=== PATIENT | female | born 1970 | race Caucasian/White ===

== ENCOUNTER 2017-05-03 20:48 | Emergency (ER) | payer OTHER ==
[2017-05-03] MEDS ORDERED: RANITIDINE 50 MG/2 ML VIAL IV ONE (21:07)
[2017-05-03] MEDS ORDERED: SODIUM CL 0.9% 20 ML VIAL ONE (21:07)
[2017-05-03] MEDS ORDERED: RANITIDINE 50 MG/2 ML VIAL ONE (21:07)
[2017-05-03] MEDS ORDERED: methylPREDNISolone SOD SUCC 125 MG/2 ML VIAL IVP ONE (21:07)
[2017-05-03] MEDS ORDERED: methylPREDNISolone SOD SUCC 125 MG/2 ML VIAL ONE (21:07)
--- NOTE | 2017-05-03 21:22 | EDPHY ---
H & P Time Seen by Provider: 05/03/17 21:20 HPI/ROS: Chief complaint. Allergic reaction HPI. 46-year-old female was bitten on the left ankle by an unknown insect at about 815 this evening when she was taking her dog further walk. She had pain and swelling on the walk to the left ankle. However shortly after getting home she knows hands and feet were swelling and itching. She developed generalized hives. Some swelling to her face and tongue. She took Benadryl with inadequate relief. She has had previous allergic reactions and does carry an EpiPen. She did not use the EpiPen tonight. ROS Constitutional. no fever/chills, no weakness Eyes. no problems with vision ENT. Face and tongue swelling Cardiovascular. no chest pain Respiratory. no shortness of breath, no cough Abdominal. no abdominal pain, no nausea/vomiting, no diarrhea . no problems urinating MS. Swelling to hands and feet Skin. Hives Lymph. no swollen glands Neuro. no headache, no dizziness, no difficulty walking or with speech Past Medical/Surgical History: IUD, previous allergic reaction Social History: , nonsmoker, no alcohol Smoking Status: Never smoked Physical Exam: General Appearance: Alert well-developed female moderate distress vital signs significant for heart rate of 129 Eyes: Pupils equal and round no pallor or injection. ENT, periorbital swelling. Mild swelling to tongue. No stridor. Respiratory: There are no retractions, lungs are clear to auscultation. Cardiovascular: Regular rate and rhythm. Gastrointestinal: Abdomen is soft and nontender, no masses, bowel sounds normal. Neurological: Awake and alert, sensory and motor exams grossly normal. Skin: Generalized hives Musculoskeletal: Neck is supple nontender. Extremities swelling of both hands and both feet Psychiatric: Patient is oriented X 3, there is no agitation. Constitutional: Initial Vital Signs Temperature (C) 36.9 C 05/03/17 20:55 Heart Rate 129 H 05/03/17 20:55 Respiratory Rate 18 05/03/17 20:55 Blood Pressure 125/92 H 05/03/17 20:55 O2 Sat (%) 95 05/03/17 20:55 O2 Delivery Mode Room Air Allergies/Adverse Reactions: banana Allergy (Verified 05/03/17 20:55) Home Medications: Medication Instructions Recorded EPINEPHrine [Epipen 0.3 MG] 0.3 mg IM ONCE #2 syr 05/03/17 Tecfidera 05/03/17 VITAMIN D 05/03/17 predniSONE 40 mg PO DAILY #6 tab 05/03/17 Medical Decision Making Procedures: IV normal saline, monitor. IV Benadryl, Pepcid, Solu-Medrol. Intramuscular epinephrine ED Course/Re-evaluation: On re-evaluation patient's symptoms have resolved. She is conversational and speaking in full sentences. No stridor. The hives and erythema have resolved Differential Diagnosis: I considered allergic reaction, anaphylaxis, airway compromise - Data Points Medications Given: Discontinued Medications Diphenhydramine HCl (Benadryl Injection) 50 mg IVP EDNOW ONE Stop: 05/03/17 21:08 Last Admin: 05/03/17 21:13 Dose: 50 mg Epinephrine HCl (Epinephrine) 0.3 mg IM EDNOW ONE Stop: 05/03/17 21:31 Last Admin: 05/03/17 21:28 Dose: 0.3 mg Methylprednisolone Sodium Succinate (Solu-Medrol) 125 mg IVP EDNOW ONE Stop: 05/03/17 21:08 Last Admin: 05/03/17 21:13 Dose: 125 mg Ranitidine HCl (Zantac) 50 mg IV EDNOW ONE Stop: 05/03/17 21:08 Last Admin: 05/03/17 21:13 Dose: 50 mg Departure - Departure Disposition: Home, Routine, Self-Care Clinical Impression: Allergic reaction Qualifiers: Encounter type: initial encounter Qualified Code(s): T78.40XA - Allergy, unspecified, initial encounter Condition: Good Instructions: Urticaria (ED) Additional Instructions: Prednisone using 2 pills at the same time each day for the next 3 days. May use Benadryl in addition. Return for worsening symptoms Referrals: Alia Sanchez MD [Primary Care Provider] - As per Instructions Prescriptions: EPINEPHrine [Epipen 0.3 MG] 0.3 mg IM ONCE #2 syr predniSONE 40 mg PO DAILY #6 tab
[2017-05-03 23:06] VITALS: BP 113/75; PULSE 83; RESP 18; TEMP 98.2; O2SAT 96
== END 2017-05-03 23:05 | disposition home or self-care (01) ==
DX: T78.40XA Allergy, unspecified, initial encounter (principal)
CPT/HCPCS: 96374; J0171; J1200; J2780

== ENCOUNTER → 2017-05-03 | Outpatient (CLI) | payer OTHER | LOC: FIMAGING 15:56 | PROVIDERS: ATTEND Nurse Practitioner Women's Health | DX: Z12.31 Encounter for screening mammogram for malignant neoplasm of breast (principal) | CPT/HCPCS: G0202 ==

== ENCOUNTER 2017-10-03 14:37 | Emergency (ER) | payer OTHER ==
[2017-10-03 15:01] VITALS: TEMP 98.4
--- NOTE | 2017-10-03 15:27 | EDPHY ---
H & P Stated Complaint: fell off sled,hit face on snow;no LOC;abrasion to chin, chipped tooth HPI/ROS: Chief complaint: Face injury History of present illness: This is a 46-year-old female who presents to the emergency department for a facial injury. Patient was sleading when she lost control, fell off and struck her jaw against the ground. She sustained an abrasion to the jaw. She has significant pain throughout the jaw. It makes it difficult to open or close the mouth. She states the rest the face feels well. She denies other trauma. There was no loss of consciousness. No report of pain in or trauma to the neck, back, chest, abdomen, pelvis or extremities. No report of neurologic symptoms including no headache, no paresthesias, no weakness or paralysis, no bowel or bladder dysfunction. Review of systems: A 10 point review of systems was obtained and other than described above was negative - Personal History LMP (Females 10-55): Post Menopausal Current Tetanus Diphtheria and Acellular Pertussis (TDAP): Yes Tetanus Vaccine Date: 2007 - Medical/Surgical History Hx Asthma: No Hx Chronic Respiratory Disease: No Hx Diabetes: No Hx Cardiac Disease: No Hx Renal Disease: No Hx Cirrhosis: No Hx Alcoholism: No Hx HIV/AIDS: No Hx Splenectomy or Spleen Trauma: No Other PMH: MS - Social History Smoking Status: Never smoked - Physical Exam Exam: General Appearance: Alert, nontoxic Eyes: PERRLA Mouth/ENT: No bleeding at the gum lines. No hemotympanum, no Bowie sign, no raccoon eyes Respiratory: Lungs clear to auscultation bilaterally Cardiac: Regular rate and rhythm. Gastrointestinal: Bowel sounds normal. Abdomen is soft, nondistended, nontender. Neurological: Alert and oriented x4. Cranial nerves 2-12 grossly intact. Strength and sensation intact and symmetrical. Ambulating without difficulty, good balance. Skin: Abrasion to the chin, no repairable lesions. Musculoskeletal: Diffuse tenderness to the chin although no crepitus or bony deformity is noted. She has difficulty opening closing the mouth although she still can. The rest the face is nontender. The head is nontender without crepitus or bony deformity. The spine is nontender without crepitus, bony deformity or step-off. Patient moving all extremities without difficulty. Constitutional: Initial Vital Signs Temperature (C) 36.9 C 12/25/17 14:58 Heart Rate 78 10/03/17 14:58 Respiratory Rate 18 10/03/17 14:58 Blood Pressure 133/91 H 10/03/17 14:58 O2 Sat (%) 96 10/03/17 14:58 O2 Delivery Mode Room Air Allergies/Adverse Reactions: banana Allergy (Verified 10/03/17 14:57) Home Medications: Medication Instructions Recorded Tecfidera 05/03/17 VITAMIN D 05/03/17 Medical Decision Making - Diagnostics Imaging: Discussed imaging studies w/ call or contact centre operator Radiologist ED Course/Re-evaluation: Patient seen under the supervision of my secondary supervising physician Dr. Cara Tomlinson. Patient presents to the emergency department for evaluation of a jaw injury sustained while sledding. CT scan of the jaw is negative for bony fracture. This appears to be a contusion. By history and physical exam no evidence of trauma to other parts of the body including the head or neck. Patient will be discharged. Home care is discussed. Return precautions are given. Patient voiced understanding and agreement with plan. Differential Diagnosis: Included but not limited to contusion, sprain or strain, bony fracture, joint dislocation - Data Points Medications Given: Discontinued Medications Hydromorphone HCl (Dilaudid) 0.5 mg IVP EDNOW ONE Stop: 10/03/17 15:34 Last Admin: 10/03/17 15:40 Dose: 0.5 mg Departure - Departure Disposition: Home, Routine, Self-Care Clinical Impression: Contusion of jaw Qualifiers: Encounter type: initial encounter Qualified Code(s): S00.83XA - Contusion of other part of head, initial encounter Condition: Good Instructions: Contusion in Adults (ED) Additional Instructions: Follow-up with your primary care doctor for continued evaluation and care Use [id number]-mgu-[id number] ibuprofen 600 mg 3 times a day for the next 2-3 days for symptom control Follow-up with a dentist for recheck of your tooth If symptoms worsen or new symptoms develop return to the emergency room for recheck Referrals: Alia Sanchez MD [Primary Care Provider] - As per Instructions [facility] [Outside] - As per Instructions [facility] [Outside] - As per Instructions
[2017-10-03] MEDS ORDERED: HYDROmorphONE/DILAUDID 1 MG/ML INJ IVP ONE (15:33)
[2017-10-03 16:45] VITALS: BP 143/91; PULSE 81; RESP 16; O2SAT 97
== END 2017-10-03 16:44 | disposition home or self-care (01) ==
DX: S00.83XA Contusion of other part of head, initial encounter (principal); W18.09XA Striking against other object with subsequent fall, initial encounter
CPT/HCPCS: 96374; J1170

== ENCOUNTER → 2018-10-27 | Outpatient (CLI) | payer OTHER | LOC: FIMAGING 15:52 | PROVIDERS: ATTEND Physician Assistant | DX: R19.4 Change in bowel habit (principal); D25.1 Intramural leiomyoma of uterus ==

== ENCOUNTER 2018-12-21 05:42 | Observation (INO) | payer OTHER ==
--- NOTE | 2018-12-15 11:38 | GHP ---
[f rep st] PREOP HISTORY AND PHYSICAL DATE OF ADMISSION: 12/21/2018 PLANNED PROCEDURE: Total laparoscopic hysterectomy for symptomatic uterine fibroids. INDICATIONS: Patient is a 47 -year-old 3, para 2-0-1-2, who has a known fibroid uterus for the last several years. She has also had recurrent episodes of urinary incontinence and pelvic pressure, which did not improve with pelvic floor physical therapy. Patient was diagnosed with multiple sclerosis several years ago. She changed medications for her MS in 06/2018, and then noted rapid weight gain, constipation, and abdominal swelling after changing her medication. The neurologist stated they did not think it was related to the drugs, so they recommended imaging. Patient had a CAT scan in , which showed an enlarged fibroid uterus. She had a pelvic ultrasound which showed a normal uterus with an 8 x 8 x 6 cm anterior fibroid. An MRI showed a large fundal fibroid. No other suspicious findings were noted. I had a long discussion with patient about management options including expected management, hysterectomy, and uterine artery embolization. We discussed the remote possibility of a sarcoma, but no other suspicious findings were noted on the imaging. Decision was made to proceed with a total laparoscopic hysterectomy with bilateral salpingectomy. Risks and benefits have been extensively reviewed with the patient. The patient has been properly consented. Patient has significant anxiety about having surgery because her only other hospital experience was for the delivery of her first child which was very traumatic for her. MEDICAL HISTORY: Significant for multiple sclerosis, stress urinary incontinence . MEDICATIONS: She is on Ocrevus, which is an IV infusion every 6 months. Her most recent one was done several weeks ago. She is also on vitamins. SURGICAL HISTORY: Wrist surgery. ALLERGIES: No known drug allergies. SOCIAL HISTORY: Patient is . She denies tobacco or drug use. FAMILY MEDICAL HISTORY: Noncontributory. DIGITAL MEDIA ANALYST HISTORY: Menarche age 14. Periods every 28 days lasting 5 days. She is a 3, para 2-0-1-2. In 12/2005, she had a spontaneous forceps- assisted vaginal delivery of an 8 pound 7 ounce male , and she had extensive tearing, as well. That delivery was very traumatic for the patient due to multiple issues with nurses and IV starts, and a physician that was not a good fit for her. In 12/2006, she had a spontaneous and in 12/2007, she had a spontaneous vaginal delivery of a 9 pound 9 ounce male infant at home. Patient delivered at home due to her traumatic previous hospitalization. Patient denies any history of any abnormal Pap smears or sexually transmitted diseases. Last Pap smear was in 02/2017. Pap and HPV testing were negative. REVIEW OF SYSTEMS: A 10-point review of systems is negative with the exception of the above-mentioned pertinent positives. She does have an IUD in place. She does have stress urinary incontinence and constant pelvic pressure. Otherwise negative. PHYSICAL EXAMINATION: VITAL SIGNS: Patient's vital signs are stable. GENERAL APPEARANCE: Alert and oriented x3. PSYCH: Appropriate affect. MUSCULOSKELETAL: Grossly intact. NEURO: Grossly intact. HEART: Rate is regular, regular. LUNGS: Clear to auscultation bilaterally. ABDOMEN: Soft, nondistended, nontender. EXTREMITIES: Reveal no calf tenderness or edema. PELVIC: Reveals a mobile enlarged uterus with no adnexal masses. Pelvic ultrasound is described above. ASSESSMENT AND PLAN: A 47 -year-old, 3, para 2-0-1-2, with symptomatic uterine fibroids. She is requesting to proceed with a total laparoscopic hysterectomy with bilateral salpingectomy. She has anxiety due to the history of a previous traumatic event with IV starts and her last delivery. Risks and benefits have been extensively reviewed with the patient. Patient has been properly consented. /[id number]/MODL MTDD
[2018-12-21] MEDS ORDERED: PHENAZOPYRIDINE HCL 100 MG TAB PO ONE ×2 (06:01→06:45)
[2018-12-21] MEDS ORDERED: ceFAZolin 2 GM/DEXTROSE 100 ML IV ONE (06:01)
[2018-12-21] MEDS ORDERED: LR 1,000 ML IV ONE (06:03)
[2018-12-21] MEDS ORDERED: LIDOCAINE 1% 2 ML INJ ID PRN (06:03)
[2018-12-21] MEDS ORDERED: PHENAZOPYRIDINE HCL 200 MG TAB PO ONE (06:30)
[2018-12-21] MEDS ORDERED: BUPIVACAINE 0.5% 30 ML SDV ONE (07:00)
[2018-12-21] MEDS ORDERED: MIDAZOLAM 2 MG/2 ML VIAL IVP ONE (07:03)
--- NOTE | 2018-12-21 07:05 | PDANEPAE ---
ANE Past Medical History - Cardiovascular History Hx Hypertension: No Hx Arrhythmias: No Hx Chest Pain: No Hx Coronary Artery / Peripheral Vascular Disease: No Hx CHF / Valvular Disease: No Hx Palpitations: No - Pulmonary History Hx COPD: No Hx Asthma/Reactive Airway Disease: No Hx Recent Upper Respiratory Infection: No Hx Oxygen in Use at Home: No Hx Sleep Apnea: No Sleep Apnea Screening Result - Last Documented: Negative Pulmonary History Comment: EXERCISE INDUCED ASTHMA IN PAST. PNEUMONIA X2 IN PAST - Neurologic History Hx Cerebrovascular Accident: No Hx Seizures: No Hx Dementia: No - Endocrine History Hx Diabetes: No - Renal History Hx Renal Disorders: No - Liver History Hx Hepatic Disorders: No - Neurological & Psychiatric Hx Hx Neurological and Psychiatric Disorders: Yes Neurological / Psychiatric History Comment: MS - Cancer History Hx Cancer: No - Congenital Disorder History Hx Congenital Disorders: No - GI History Hx Gastrointestinal Disorders: No - Other Health History Other Health History: NEG - Chronic Pain History Chronic Pain: No - Surgical History Prior Surgeries: WRIST SURGERY ANE Review of Systems Review of Systems: - Exercise capacity METS (RN): 5 METS ANE Patient History - Allergies Allergies/Adverse Reactions: banana Allergy (Verified 12/11/18 14:30) THROAT SWELLING WASPS Allergy (Uncoded 12/11/18 14:30) GENERALIZED REDNESS & SWELLING - Home Medications Home Medications: Cholecalciferol Vit D3 [Vitamin D3 (*)] 2,000 units PO DAILY 05/03/17 [Last Taken 12/14/18] Ocrelizumab [Ocrevus] 300 mg IV Q180D 05/03/17 [Last Taken 12/15/18] Acetaminophen [Tylenol 325mg (*)] 325 mg PO Q6 PRN 12/04/18 [Last Taken 12/17/18 ] Ibuprofen [Motrin (*)] 600 mg PO DAILY PRN 12/04/18 [Last Taken 11/23/18] Ketoconazole [Ketoconazole] 1 ca TD Q3D 12/04/18 [Last Taken 12/20/18] Psyllium Husk (with Sugar) [Metamucil Packet] 1 each PO DAILY 12/04/18 [Last Taken 12/14/18] - NPO status NPO Status: no food or drink >8 hours NPO Since - Liquids (Date): 12/21/18 NPO Since - Liquids (Time): 05:15 NPO Since - Solids (Date): 12/20/18 NPO Since - Solids (Time): 21:00 - Anes Hx Anes Hx: no prior problems - Smoking Hx Smoking Status: Never smoked - Family Anes Hx Family Hx Anesthesia Complications: NEG ANE Labs/Vital Signs - Vital Signs Vital Signs: reviewed preoperatively; see RN documention for details Blood Pressure: 125/88 Heart Rate: 66 Respiratory Rate: 16 O2 Sat (%): 96 Height: 167.64 cm Weight: 61.235 kg ANE Physical Exam - Airway Neck exam: FROM Mallampati Score: Class 1 Mouth exam: normal dental/mouth exam - ASA Status ASA Status: II ANE Anesthesia Plan Anesthesia Plan: general endotracheal anesthesia
[2018-12-21] MEDS ORDERED: fentaNYL 100 MCG/2 ML INJ ONE (07:09)
[2018-12-21] MEDS ORDERED: PROPOFOL 200 MG/20 ML VIAL ONE (07:10)
[2018-12-21] MEDS ORDERED: ROCURONIUM 50 MG/5 ML VIAL ONE ×2 (07:11→08:47)
[2018-12-21] MEDS ORDERED: PETROLAT,WHT/MIN OIL/SOD CHL 3.5 GM OPHT.OINT ONE (07:12)
[2018-12-21] MEDS ORDERED: DEXAMETHASONE 4 MG/ML VIAL ONE (07:16)
[2018-12-21] MEDS ORDERED: LIDOCAINE 2% 100 MG/5 ML SYR ONE (07:17)
--- NOTE | 2018-12-21 07:17 | PDHPUP ---
History & Physical Update H&P update statement: This history and physical update is based on an assessment of the patient which was completed after admission or registration (within 24 hours), but prior to the surgery/procedure. H&P update: H&P reviewed & patient examined, no change in patient's condition since H&P completed (clarified the difference between complete and partial hysterectomy for patient. reassured ovaries joshua be left in unless suspicious)
[2018-12-21] MEDS ORDERED: ePHEDrine SULFATE 25 MG/5 ML SYR ONE (08:12)
[2018-12-21] MEDS ORDERED: ONDANSETRON 4 MG/2 ML VIAL ONE (08:44)
[2018-12-21] MEDS ORDERED: KETOROLAC 30 MG/1 ML SDV ONE (08:44)
[2018-12-21] MEDS ORDERED: HYDROmorphONE/DILAUDID 2 MG/ML INJ ONE (08:45)
[2018-12-21] MEDS ORDERED: METOCLOPRAMIDE 10 MG/2 ML VIAL IVP PRN (09:37)
[2018-12-21] MEDS ORDERED: oxyCODONE IR 5 MG TAB PO PRN ×2 (09:37→10:05)
[2018-12-21] MEDS ORDERED: ONDANSETRON 4 MG/2 ML VIAL IVP PRN ×2 (09:37→21:50)
[2018-12-21] MEDS ORDERED: fentaNYL 100 MCG/2 ML INJ IVP PRN (09:37)
[2018-12-21] MEDS ORDERED: MEPERIDINE 25 MG/0.5 ML AMP IVP PRN (09:37)
[2018-12-21] MEDS ORDERED: NALOXONE HCL 0.4 MG/ML INJ IVP PRN (09:37)
[2018-12-21] MEDS ORDERED: ALBUTEROL 3 ML DEYVIAL IH PRN (09:37)
[2018-12-21] MEDS ORDERED: HYDROmorphONE/DILAUDID 2 MG/ML INJ IVP PRN (09:37)
[2018-12-21] MEDS ORDERED: DIAZEPAM 5 MG/ML 1 ML SYR IVP PRN (09:37)
[2018-12-21] MEDS ORDERED: LR 500 ML IV PRN (09:37)
[2018-12-21] MEDS ORDERED: PROMETHAZINE HCL 25 MG/ML INJ IVP PRN (09:37)
--- NOTE | 2018-12-21 10:10 | POSTOPPROG ---
Post Op Note Date of Operation: 12/21/18 Surgeon: Sharon Salvador Wash Box Operator: peggy Anesthesiologist: Abril Anesthesia: GET(General Endotracheal) (symptomatic firboid uterus) Pre-op Diagnosis: symptomatic fibroid uterus Post-op Diagnosis: same as pre op Procedure: total laparoscopic hysterectomy with bilateral salpingectomy and cystoscopy Inf/Abcess present in the surg proc area at time of surgery?: No Depth: Organ Space EBL: 50-100 Specimen(s): uterus and bilateral fallopian tubes
--- NOTE | 2018-12-21 11:35 | POSTANESTH ---
Post Anesthetic Evaluation Cardiovascular Status: Normal, Stable Respiratory Status: Normal, Stable Level of Consciousness/Mental Status: Can Participate in Eval Pain Control: Adequate, Prn Tx Ordered Nausea/Vomiting Control: Adequate, Prn Tx Ordered Complications Possibly Related to Anesthesia: None Noted
--- NOTE | 2018-12-21 12:31 | GOP ---
[f rep st] OPERATIVE REPORT DATE OF OPERATION: 12/21/2018 SURGEON: Sharon Salvador DO HEATING AND AIR CONDITIONING MECHANIC: Dr. Au. ANESTHESIA: General endotracheal tube. ANESTHESIOLOGIST: Dr. Samuels. PREOPERATIVE DIAGNOSIS: Symptomatic fibroid uterus. POSTOPERATIVE DIAGNOSIS: Symptomatic fibroid uterus. PROCEDURE PERFORMED: Total laparoscopic hysterectomy with bilateral salpingectomy and cystoscopy. FINDINGS: 1. Exam under anesthesia: Mobile midposition, enlarged uterus with no adnexal masses. 2. Laparoscopic findings: Enlarged fibroid uterus with right anterior fundal subserosal fibroid. Nor mal ovaries and tubes. 3. Cystoscopy showed bilateral ureteral jets. SPECIMENS: Uterus, cervix, and bilateral fallopian tubes. ESTIMATED BLOOD LOSS: 50 cc. INDICATIONS: Patient is a 48-year-old 3, para 2-0-1-2 who has a known fibroid uterus for e last several years. She has had persistent urinary incontinence and pelvic pressure, which did not improve with pelvic floor physical therapy. Her symptoms have recently gotten progressively worse and ultrasound and imaging showed an 8 x 6 cm anterior fibroid. Management options were reviewed with e patient, and patient elected to proceed with a total laparoscopic hysterectomy with bilateral salpi ngectomy. Risks and benefits extensively were reviewed with the patient, and patient was properly con sented. DESCRIPTION OF PROCEDURE: Patient was taken to the operating room with intravenous fluids in place. She was given 2 g of Ancef intravenously preop. She was then placed on the operating room table in th e dorsal supine position where general anesthesia was obtained. She was then repositioned into the do rsal lithotomy position with the Yellofin stirrups and prepped and draped in normal sterile fashion. A Horn catheter was then placed. Venodynes were also placed on her lower extremities. Pelvic exam reveals mobile, midposition, enlarged uterus with no adnexal masses. A speculum was then placed in the patient's vagina. A single-tooth tenaculum is used to grasp the anterior lip of the cer vix, and the cervix was sounded to 10 cm. The FRIEDA was assembled with the 10 cm tip and the large cup and introduced without difficulty. The uterus was able to be mobilized with the FRIEDA. Attention was then turned to the patient's abdomen where a 5 mm skin incision was then made in the um bilicus and towel clamps were used to grasp the anterior abdominal wall to elevate it, and the trocar was then advanced into the patient's abdomen under direct visualization. The area underneath the tro car insertion site was found to be unremarkable. The abdomen was then insufflated with CO2 gas until an adequate pneumoperitoneum was achieved and the towel clamps were removed from the patient's abdome n. The uterus was clearly visualized. A 5 mm skin incision was made in the patient's right lower quadran t and a 5 mm trocar was then advanced into the patient's abdomen under direct visualization. A 5 mm s kin incision was then made in the left lower quadrant and a 5 mm trocar was then advanced into the pa tient's abdomen under direct visualization. The uterus was noted to be freely mobile. The colpotomy r ing was easily identified. The left salpingectomy was performed with the LigaSure. The utero-ovarian ligament was then clamped, clamped, cauterized, and transected. The left round ligament was clamped, cauterized, and transected. The anterior and posterior leaflet of the broad ligament were then clampe d, cauterized, and transected. The bladder flap was created anteriorly. The uterine arteries were the n skeletonized, clamped, cauterized, and transected. Attention was then turned the patient's contralateral side, and the salpingectomy was performed in si milar fashion, as well as the clamp, cauterization, and transection of the round ligaments, utero-ova blanche ligaments, broad ligaments. The uterine arteries were then skeletonized. The bladder flap was cr eated anteriorly. The bladder was dissected well off the lower uterine segment. The colpotomy was the n performed with the ligature without difficulty. Following completion of the colpotomy, the uterus w as then withdrawn into the vagina and removed without difficulty. A MARYBEL drain with a V-Loc suture in i t were then introduced into the vagina to maintain pneumoperitoneum. The V-Loc suture was then used i n a running fashion to close the vaginal cuff. A second V-Loc suture was then used to close the left angle and the remainder of the vaginal cuff. The remainder of suture needles were then withdrawn unde r direct visualization and handed off. The pelvis was irrigated and found to be hemostatic. The pedic les were found to be hemostatic. Ureters were noted to be peristalsing bilaterally. Trocars were then removed from the patient's abdomen. The Horn catheter was then removed and a cysto scopy was performed. Bilateral ureteral jets were noted. No suture was noted within the bladder, and a bubble was noted at the top of the bladder. Cystoscope was then was removed, the bladder was then d rained, and the Horn catheter was again removed. Speculum exam was performed and the vaginal cuff wa s noted to be well suspended and intact. No bleeding was noted. The instruments were then removed from the patient's abdomen and vagina, and 4-0 Monocryl was then us ed to close the skin in a subcuticular fashion and then closed with Steri-Strips. Patient was then re turned to the dorsal supine position where she was easily awoken from anesthesia. Sponge, lap, and ne edle count were correct x2. Patient was transferred to recovery room in stable condition. /[id number]/MODL
[2018-12-21] MEDS: ACETAMINOPHEN 500 MG TAB PO SCH ×2 (13:49→22:27)
[2018-12-21] MEDS: KETOROLAC 30 MG/1 ML SDV IVP SCH ×2 (15:54→22:28)
[2018-12-22] MEDS: KETOROLAC 30 MG/1 ML SDV IVP SCH (04:56)
[2018-12-22] MEDS: ACETAMINOPHEN 500 MG TAB PO SCH (04:56)
--- NOTE | 2018-12-22 07:58 | SOAPPROG ---
SOAP Progress Note Assessment/Plan: Assessment: pod# 1 s/p TLH BS uncomplicated post operative course discharge instructions Plan: 12/22/18 07:54 Subjective: patient is doing well. pain is well controlled. had nausea last night which resolved with zofran. not needing narcotics. scant vaginal bleeding. passing gas. voiding without difficulty. ambulating. ready to go home. Objective: Vital Signs Temp Pulse Resp BP Pulse Ox 36.9 C 79 14 109/72 95 12/22/18 05:00 12/22/18 05:00 12/22/18 05:00 12/22/18 05:00 12/22/18 05:00 Laboratory Results 12/22/18 05:15 12/21/18 12/22/18 12/23/18 05:59 05:59 05:59 Intake Total 1300 Output Total 1750 Balance -450 Physical Exam - Physical Exam General Appearance: WD/WN, alert Neck: non-tender, full range of motion Respiratory: chest non-tender, lungs clear, normal breath sounds Cardiac/Chest: normal peripheral pulses, regular rate, rhythm Abdomen: normal bowel sounds, non-tender, soft Skin: normal color, warm/dry, other (incicisons covered) Extremities: normal range of motion, non-tender, normal inspection, normal capillary refill Neuro/Psych: no motor/sensory deficits, alert, normal mood/affect, oriented x 3 ICD10 Worksheet Patient Problems: Problems Problem Status Onset Uterine fibroid Acute Contusion of jaw Acute
[2018-12-22 08:51] VITALS: BP 118/76
[2018-12-22] MEDS ORDERED: ENOXAPARIN 40 MG/0.4 ML SYR SC SCH (09:00)
[2018-12-22] MEDS ORDERED: IBUPROFEN 600 MG TAB PO SCH (10:03)
== END 2018-12-22 11:00 | disposition home or self-care (01) ==
LOC: F3N 05:42 → F3E 13:33 → FOB 14:00
PROVIDERS: ADMIT Obstetrics & Gynecology; ATTEND Obstetrics & Gynecology
PROC: 0UT9FZZ Resection of Uterus, Via Natural or Artificial Opening With Percutaneous Endoscopic Assistance (ICD-10-PCS; principal; 2018-12-21 07:15)
PROC: 0UT74ZZ Resection of Bilateral Fallopian Tubes, Percutaneous Endoscopic Approach (ICD-10-PCS; principal; 2018-12-21 07:15)
PROC: 0TJ98ZZ Inspection of Ureter, Via Natural or Artificial Opening Endoscopic (ICD-10-PCS; principal; 2018-12-21 07:15)
DX: D25.2 Subserosal leiomyoma of uterus (principal); R10.2 Pelvic and perineal pain; G35 Multiple sclerosis
CPT/HCPCS: 58573; G0378; J0690; J1100; J1170; J1650; J1885; J2001; J2250; J2405; J2704; J3010